=== PATIENT | female | born 1940 | race Caucasian/White ===

== ENCOUNTER 2016-08-01 18:26 | Inpatient (IN) | payer MEDICARE, OTHER ==
[~2016-08-01 18:26] MED LIST: AL-MAG HYDROX-S30 ML PO; ARAVA20 MG; ATENOLOL25 MG PO; ATENOLOL50 MG; BACTRIM DS1 TA1 PO; BAYER81 MG PO; BYSTOLIC2.5 M1 PO; CALCIUM 6001.5 G PO; CALCIUM500 M2 PO; CALCIUM500 MG; CALCIUM600 M1 PO; CELEBREX200 MG PO; CIPRO250 MG PO; CLONAZEPAM1 M1 PO; CLONAZEPAM2 M1 PO; CLONAZEPAM2 MG; CLONAZEPAM2 MG PO; COUMADIN PO; COUMADIN1 MG PO; COUMADIN2 M1; COUMADIN2 M1 PO; COUMADIN2 MG PO; COUMADIN3 MG; COUMADIN3 MG PO; COUMADIN4 MG PO; COZAAR50 MG; COZAAR50 MG PO; CRESTOR5 MG PO; CULTURELLE1 CA1 PO; CYMBALTA30 M1 PO; CYMBALTA30 MG PO; CYMBALTA60 MG PO; DARVOCET-N 1001 TAB PO; DURAGESIC1 PAT; DURAGESIC1 PATCH .; ENABLEX7.5 MG; ENTERIC ASPIRIN81 MG; ENTERIC COATED325 MG; FOLIC ACID1 MG; FUROSEMIDE40 MG PO; GABAPENTIN300 MG; GABARONE100 MG PO; GLUCOPHAGE500 MG PO; HYDROCODON-ACE1 EA17 PO; HYDROMORPHONE HC2 MG PO; HYDROXYCHLOROQ200 MG; ISOSORBIDE MONO30 M4 PO; K-DUR20 MEQ PO; KLONOPIN2 MG PO; LEVOTHROID100 MCG PO; LEVOTHYROXINE88 MC2 PO; LEVOXYL88 MC1 PO; LINZESS145 MC1 PO; LIPITOR10 M1 PO; LOFIBRA200 MG PO; LOFIBRA54 MG PO; MACRODANTIN100 MG; METHOTREXATE2.5 MG; MILK OF MAGNESIA PO; MIRALAX17 GM PO; MUCINEX600 MG; MYRBETRIQ25 M1 PO; NEURONTIN300 MG PO; NITROGLYCERIN0.4 M2 SL; NITROTAB0.3 MG SL; NORCO 5-325 TA1 EACH PO; NORCO 5/325 TAB1 TAB PO; OXYTROL1 PATCH.BW TD; OYSTER CALCIUM500 MG PO; PAXIL20 MG PO; PAXIL40 MG; PAXIL40 MG PO; PLAQUENIL200 MG; PRILOSEC OTC20 MG; PRILOSEC OTC20 MG PO; PRILOSEC40 MG PO; PROAMATINE10 MG; PROTONIX40 M1 PO; QUININE SULFAT260 MG; SENNA S TABLET1 TAB PO; SENOKOT8.6 MG PO; SYNTHROID150 MCG; TOVIAZ8 MG PO; TRADJENTA5 MG PO; TRICOR145 MG; TRIMETHOPRIM100 MG PO; TYLENOL325 MG PO; TYLENOL500 MG PO; VESICARE10 MG PO; VITAMIN D1000 UNI1 PO; VITAMIN D1000 UNI3 PO; WELCHOL625 MG; ZANTAC150 MG PO
[2016-08-01] MEDS ORDERED: XALATAN2.5 M1 RIGHT EYE (19:06)
[2016-08-01] MEDS ORDERED: BETAGAN5 M1 RIGHT EYE (19:07)
[2016-08-01] MEDS ORDERED: OYSTER SHELL C1 EA13 PO (19:08)
[2016-08-01 19:13] LABS: BASO % 0.7 % (0-2); BASO ABSOLUTE COUNT 0.1 tho/cmm (0.0-0.2); EOS % 5.7 % (0-7); EOSINOPHIL ABSOLUTE COUNT 0.5 tho/cmm (0.0-0.7); HCT-HEMATOCRIT 35.2 % (34.0-49.0); IMMATURE GRANULOCYTES ABSOLUTE 0.03 tho/cmm (0-0.03); IMMATURE GRANULOCYTES PERCENT 0.4 % (0-0.3); LYMPH % 30.3 % (20-45); LYMPH ABSOLUTE COUNT 2.6 tho/cmm (0.8-4.5); MCH (MEAN CORPUSCULAR HGB) 24.1 pg (28.0-32.0); MCHC MEAN CORPUSCULAR HGB CONC 31.3 % (32.0-36.0); MCV (MEAN CELL VOLUME) 77.2 fl (82.0-96.0); MEAN PLATELET VOLUME 10.2 cmc (9.4-12.4); MONO % 11.6 % (0-12); NEUTROPHIL ABSOLUTE COUNT 4.4 tho/cmm (1.6-8.0); NEUTROPHIL-AUTOMATED 4.4 tho/cmm (1.6-8.0); NEUTROPHILS % 51.3 % (40-80); PLATELET COUNT 210 tho/cmm (150-450); RED BLOOD COUNT 4.56 mil/cmm (4.00-5.20); RED CELL DISTRIBUTION WIDTH 15.2 % (12.4-16.4); WHITE BLOOD COUNT 8.5 tho/cmm (4.0-10.0)
[2016-08-01] MEDS ORDERED: AMOXICILLIN500 M1 PO (19:13)
[2016-08-01] MEDS ORDERED: CEPACOL SORE T1 EAC2 MM (19:13)
[2016-08-01] MEDS ORDERED: MILK OF MAGNESIA PO (19:14)
[2016-08-01] MEDS ORDERED: ULTRAM50 M1 PO (19:15)
[2016-08-01] MEDS ORDERED: [UNRECOGNIZED DRUG - OTHER] PO (19:15)
[2016-08-01] MEDS ORDERED: POLYETHYLENE G255 G1 PO (19:15)
[2016-08-01 19:17] LABS: INR 1.9 INR (0.9-1.1)
[2016-08-01 19:29] LABS: ANION GAP 12 mmol/L (0-20); BLOOD UREA NITROGEN 18 mg/dl (6-24); CALCIUM 8.6 mg/dl (8.5-10.5); CARBON DIOXIDE-VENOUS 28 mmol/L (22-32); CHLORIDE 108 mmol/l (96-110); CREATININE 1.11 mg/dl (0.50-1.10); GLUCOSE 134 mg/dL (70-110); POTASSIUM 3.8 mmol/L (3.7-5.1); SODIUM 144 mmol/L (135-145); eGFR VALUE FOR BLACK 55 mL/Min
[2016-08-01 19:39] LABS: URINE APPEARANCE HAZY; URINE BILIRUBIN NEGATIVE (NEG); URINE BLOOD NEGATIVE (NEG); URINE COLOR YELLOW; URINE GLUCOSE (UA) NEGATIVE (NEG); URINE KETONE NEGATIVE (NEG); URINE LEUKOCYTE ESTERASE NEGATIVE (NEG); URINE NITRITE NEGATIVE (NEG); URINE PROTEIN NEGATIVE (NEG)
[2016-08-02 06:00] LABS: BASO % 0.7 % (0-2); BASO ABSOLUTE COUNT 0.1 tho/cmm (0.0-0.2); EOS % 5.8 % (0-7); EOSINOPHIL ABSOLUTE COUNT 0.6 tho/cmm (0.0-0.7); HCT-HEMATOCRIT 37.2 % (34.0-49.0); HGB-HEMOGLOBIN 11.6 gm/dl (12.0-15.5); IMMATURE GRANULOCYTES ABSOLUTE 0.03 tho/cmm (0-0.03); IMMATURE GRANULOCYTES PERCENT 0.3 % (0-0.3); LYMPH % 30.9 % (20-45); LYMPH ABSOLUTE COUNT 2.9 tho/cmm (0.8-4.5); MCH (MEAN CORPUSCULAR HGB) 24.2 pg (28.0-32.0); MCHC MEAN CORPUSCULAR HGB CONC 31.2 % (32.0-36.0); MCV (MEAN CELL VOLUME) 77.7 fl (82.0-96.0); MEAN PLATELET VOLUME 10.6 cmc (9.4-12.4); MONO % 8.6 % (0-12); MONOCYTE ABSOLUTE COUNT 0.8 tho/cmm (0.0-1.2); NEUTROPHILS % 53.7 % (40-80); PLATELET COUNT 197 tho/cmm (150-450); RED BLOOD COUNT 4.79 mil/cmm (4.00-5.20); WHITE BLOOD COUNT 9.4 tho/cmm (4.0-10.0)
[2016-08-02 06:09] LABS: ANION GAP 12 mmol/L (0-20); BLOOD UREA NITROGEN 14 mg/dl (6-24); C-REACTIVE PROTEIN 2.6 mg/dl (0-0.9); CALCIUM 8.5 mg/dl (8.5-10.5); CARBON DIOXIDE-VENOUS 26 mmol/L (22-32); CHLORIDE 109 mmol/l (96-110); CREATININE 0.95 mg/dl (0.50-1.10); FERRITIN 16 ng/ml (8-250); GLUCOSE 135 mg/dL (70-110); POTASSIUM 4.3 mmol/L (3.7-5.1); SODIUM 143 mmol/L (135-145); eGFR VALUE FOR BLACK 67 mL/Min
[2016-08-02 06:11] LABS: IRON 39 ug/dl (37-170); IRON BINDING CAPACITY 377 ug/dl (250-450)
[2016-08-02 06:30] LABS: TSH-THYROID STIMULATING HORM. 4.89 uIU/ml (0.40-3.80)
[2016-08-03 12:41] LABS: INR 1.4 INR (0.9-1.1)
[2016-08-03 12:47] LABS: PROTHROMBIN TIME 16.8 SECONDS (9.0-13.6)
[2016-08-04 07:12] LABS: INR 1.2 INR (0.9-1.1)
[2016-08-04] MEDS ORDERED: TYLENOL325 M2 PO (15:44)
[2016-08-04] MEDS ORDERED: BISCOLAX10 MG PR (15:53)
[2016-08-04] MEDS ORDERED: COLACE100 M1 PO (15:55)
== END 2016-08-04 17:40 | disposition home health service (06) | DRG 74 ==
LOC: EDMED 18:26 → EMR2 21:55 → 5WF 08-02 00:47
PROVIDERS: Hospitalist; Nurse Practitioner Family; Psychiatry & Neurology Neurology; Registered Nurse; ADMIT Internal Medicine
DX: E11.40 Type 2 diabetes mellitus with diabetic neuropathy, unspecified (principal); F03.90 Unspecified dementia, unspecified severity, without behavioral disturbance, psychotic disturbance, mood disturbance, and anxiety; D64.9 Anemia, unspecified; Z91.81 History of falling; M62.81 Muscle weakness (generalized); Z86.718 Personal history of other venous thrombosis and embolism; Z79.01 Long term (current) use of anticoagulants; E03.9 Hypothyroidism, unspecified; H54.7 Unspecified visual loss; Z86.73 Personal history of transient ischemic attack (TIA), and cerebral infarction without residual deficits; F32.9 Major depressive disorder, single episode, unspecified; G31.9 Degenerative disease of nervous system, unspecified; I25.10 Atherosclerotic heart disease of native coronary artery without angina pectoris; M06.9 Rheumatoid arthritis, unspecified; Z88.8 Allergy status to other drugs, medicaments and biological substances; E78.5 Hyperlipidemia, unspecified; K21.9 Gastro-esophageal reflux disease without esophagitis; W19.XXXA Unspecified fall, initial encounter; M54.2 Cervicalgia
CPT/HCPCS: A9577; G8978-GP-CK; G8979-GP-CJ; J1650; J1815; J7030; P9612